=== PATIENT | male | born 1955 | race African-American/Black ===

== ENCOUNTER 2017-08-04 17:41 | Emergency (ER) | payer MEDICAID, OTHER ==
[~2017-08-04] VITALS: Ht 182.9 cm; Wt 98.0 kg
[2017-08-04 18:43] VITALS: BP 120/69
[2017-08-04] MEDS ORDERED: LIDOCAINE HCL/PF 1% 2 ML VIAL IM ONE (19:00)
[2017-08-04] MEDS ORDERED: IBUPROFEN 800 MG TABLET PO ONE (19:00)
[2017-08-04] MEDS ORDERED: CefTRIAXone SODIUM 1 GM/VIAL IM ONE (19:00)
== END 2017-08-04 20:36 | disposition home or self-care (01) ==
LOC: EMS 17:42
DX: L02.31 Cutaneous abscess of buttock (principal); H40.9 Unspecified glaucoma
CPT/HCPCS: 96372; 99283; J0696; J3490

== ENCOUNTER 2017-08-13 12:45 | Emergency (ER) | payer OTHER ==
[~2017-08-13] VITALS: Ht 177.8 cm; Wt 72.7 kg
[2017-08-13 12:59] VITALS: BP 137/95
[2017-08-13] MEDS ORDERED: ACET-66 PO (13:06)
[2017-08-13] MEDS ORDERED: BACTDSB PO (13:06)
[2017-08-13] MEDS ORDERED: CEPH500 PO (13:06)
[2017-08-13] MEDS ORDERED: OxyCODONE HCL/ACETAMINOPHEN 5-325 MG TABLET PO ONE (15:15)
== END 2017-08-13 16:16 | disposition home or self-care (01) ==
LOC: EMS 12:46
DX: K61.0 Anal abscess (principal); H40.9 Unspecified glaucoma
CPT/HCPCS: 99283

== ENCOUNTER 2019-11-24 12:13 | Emergency (ER) | payer MEDICAID, OTHER ==
[~2019-11-24] VITALS: Ht 170.2 cm; Wt 86.4 kg
[~2019-11-24 12:13] MED LIST: ACET-66 PO; BACTDSB PO; CEPH500 PO
[2019-11-24 13:14] VITALS: BP 142/79
== END 2019-11-24 13:21 | disposition home or self-care (01) ==
LOC: EMS 12:15
DX: Z02.6 Encounter for examination for insurance purposes (principal); H40.9 Unspecified glaucoma; Z79.899 Other long term (current) drug therapy

== ENCOUNTER 2021-09-19 09:23 | Emergency (ER) | payer MEDICAID ==
[~2021-09-19] VITALS: Ht 170.2 cm; Wt 68.2 kg
[~2021-09-19 09:23] MED LIST changes: -CEPH500 PO; +CEPH500C3 PO
[2021-09-19] MEDS ORDERED: MECLIZINE HCL 25 MG TABLET PO ONE (12:00)
[2021-09-19 14:03] VITALS: BP 131/75
== END 2021-09-19 14:05 | disposition home or self-care (01) ==
LOC: EMS 09:23
DX: H81.399 Other peripheral vertigo, unspecified ear (principal)
CPT/HCPCS: 70450; 93005; 99284

== ENCOUNTER 2023-02-18 17:35 | Emergency (ER) | payer MEDICARE, MEDICAID ==
[~2023-02-18] VITALS: Ht 167.6 cm; Wt 75.0 kg
[~2023-02-18 17:35] MED LIST changes: +CEPH-558 PO; -CEPH500C3 PO
[2023-02-18 17:41] VITALS: BP 146/91
[2023-02-18 18:14] LABS: EOSINOPHILS % (AUTO) 4.1 % (1.0-6.0); HEMOGLOBIN 13.8 g/dL (13.5-17.5); LYMPHOCYTES # (AUTO) 2.3 K/uL (1.0-4.8); LYMPHOCYTES % (AUTO) 38.8 % (22.0-44.0); MEAN CORPUSCULAR HEMOGLOBIN 29.2 pg (26.0-34.0); MEAN CORPUSCULAR HGB CONC 33.6 G/dL (31.0-37.0); MEAN CORPUSCULAR VOLUME 87 fL (80-100); MONOCYTES # (AUTO) 0.5 K/uL (0.1-1.0); MONOCYTES % (AUTO) 8.1 % (2.0-9.0); NEUTROPHILS # (AUTO) 2.8 K/uL (1.8-7.7); PLATELET COUNT (AUTO) 222 K/uL (150-450); RED BLOOD CELL COUNT(AUTO) 4.71 MIL/uL (4.50-5.90); RED CELL DISTRIBUTION WIDTH 13.3 % (11.5-14.5)
[2023-02-18 18:28] LABS: ANION GAP 5 mmol/L (8-16); CALCIUM, TOTAL 9.2 mg/dL (8.8-10.5); CARBON DIOXIDE 28 mmol/L (22-29); CHLORIDE 105 mmol/L (98-107); CREATININE 0.81 mg/dL (0.60-1.30); GLOMERULAR FILTR. RATE CALC > 60 mL/min (>60); GLUCOSE,RANDOM 113 mg/dL (70-110); POTASSIUM 4.5 mmol/L (3.5-5.1); SODIUM SERUM 138 mmol/L (136-145); UREA NITROGEN, BLOOD 11 mg/dL (7-18)
[2023-02-18 18:39] LABS: ALANINE AMINOTRANSFERASE 38 U/L (12-78); ALBUMIN 4.1 g/dL (3.4-5.0); ALKALINE PHOSPHATASE 88 U/L (46-116); ASPARTATE AMINOTRANSFERASE 23 U/L (15-37); LIPASE 99 U/L (73-393); TOTAL PROTEIN, SERUM 8.2 g/dL (6.4-8.2)
[2023-02-18] MEDS ORDERED: MAGNESIUM HYDROXIDE SUSPENSION 30 ML UDCUP PO ONE (21:15)
[2023-02-18] MEDS ORDERED: BISACODYL 10 MG RECTAL RECTAL SUPPOSITORY PR ONE (21:15)
[2023-02-18] MEDS ORDERED: POLY238P PO (22:30)
[2023-02-18] MEDS ORDERED: MAG30ORA11 PO (22:30)
[2023-02-18] MEDS ORDERED: OMEP20 PO (22:30)
== END 2023-02-18 22:43 | disposition home or self-care (01) ==
LOC: EMS 17:35
DX: K29.70 Gastritis, unspecified, without bleeding (principal); R10.13 Epigastric pain; K40.90 Unilateral inguinal hernia, without obstruction or gangrene, not specified as recurrent; Z98.890 Other specified postprocedural states
CPT/HCPCS: 99285; 74176; 71045; 80053; 83690; 84484; 85025; 36415; 93005; G0480

== ENCOUNTER 2023-10-20 16:17 | Emergency (ER) | payer OTHER ==
[~2023-10-20] VITALS: Ht 172.7 cm; Wt 68.2 kg
[~2023-10-20 16:17] MED LIST changes: -BACTDSB PO; -CEPH-558 PO; +MAG30ORA11 PO; +OMEP20 PO; +POLY238P PO
[2023-10-20 16:57] VITALS: BP 131/68; PULSE 68; RESP 18; TEMP 97.2
[2023-10-20] MEDS ORDERED: RABIES IMMUNE GLOBULIN/PF 150 UNIT/ML 10 ML VIAL IM. ONE (18:00)
[2023-10-20] MEDS ORDERED: PERTUSS(ACELL),DIPH,TET VAC/PF 0.5 ML SYRINGE IM. ONE (18:00)
[2023-10-20] MEDS ORDERED: AMOX TR/POT CLAV 875 MG/125 MG TABLET PO ONE (18:00)
[2023-10-20] MEDS ORDERED: RABIES VACCINE, HUMAN DIPLOID/PF 2.5 UNITS/ML VIAL IM. ONE (18:00)
[2023-10-20] MEDS ORDERED: AMOX1TAB16 PO (18:02)
[2023-10-20] MEDS ORDERED: BRIM15DR2 OU (18:05)
[2023-10-20] MEDS ORDERED: FLUT16SP NASAL (18:05)
[2023-10-20] MEDS ORDERED: LORA10TA7 PO (18:05)
[2023-10-20] MEDS ORDERED: BIMA2.5D4 OU (18:05)
== END 2023-10-20 19:12 | disposition home or self-care (01) ==
LOC: EMS 16:18
DX: S81.852A Open bite, left lower leg, initial encounter (principal); Z23 Encounter for immunization; W54.0XXA Bitten by dog, initial encounter; Y93.89 Activity, other specified; Y92.89 Other specified places as the place of occurrence of the external cause; Y99.8 Other external cause status
CPT/HCPCS: 90375; 90471; 90472; 90675; 90715; 96372; 99284

== ENCOUNTER 2023-10-25 16:16 | Emergency (ER) | payer OTHER ==
[~2023-10-25] VITALS: Ht 180.3 cm; Wt 93.0 kg
[~2023-10-25 16:16] MED LIST changes: +AMOX1TAB16 PO; +BIMA2.5D4 OU; +BRIM15DR2 OU; +FLUT16SP NASAL; +LORA10TA7 PO; -MAG30ORA11 PO; -OMEP20 PO; -POLY238P PO
[2023-10-25 16:20] VITALS: BP 120/64; PULSE 62; RESP 16; TEMP 98.3
[2023-10-25] MEDS ORDERED: RABIES VACCINE, HUMAN DIPLOID/PF 2.5 UNITS/ML VIAL IM. ONE (17:30)
== END 2023-10-25 18:05 | disposition home or self-care (01) ==
LOC: EMS 16:20
DX: S81.052D Open bite, left knee, subsequent encounter (principal); Z29.14 Encounter for prophylactic rabies immune globulin; Z98.890 Other specified postprocedural states; W54.0XXD Bitten by dog, subsequent encounter
CPT/HCPCS: 90471; 90675; 99281

== ENCOUNTER 2023-10-31 16:35 | Emergency (ER) | payer OTHER ==
[~2023-10-31] VITALS: Ht 175.3 cm; Wt 90.9 kg
[~2023-10-31 16:35] MED LIST changes: -ACET-66 PO
[2023-10-31 16:42] VITALS: TEMP 98
[2023-10-31 17:57] VITALS: BP 118/72; PULSE 72; RESP 18
[2023-10-31] MEDS ORDERED: RABIES VACCINE, HUMAN DIPLOID/PF 2.5 UNITS/ML VIAL IM. ONE (18:00)
== END 2023-10-31 18:34 | disposition home or self-care (01) ==
LOC: EMS 16:39
DX: S81.859D Open bite, unspecified lower leg, subsequent encounter (principal); Z23 Encounter for immunization; Z98.890 Other specified postprocedural states; W54.0XXD Bitten by dog, subsequent encounter
CPT/HCPCS: 90471; 90675; 99281

== ENCOUNTER 2024-05-18 16:35 | Emergency (ER) | payer OTHER ==
[~2024-05-18] VITALS: Ht 180.3 cm; Wt 119.0 kg
[~2024-05-18 16:35] MED LIST changes: -AMOX1TAB16 PO
[2024-05-18 21:28] VITALS: BP 145/88; PULSE 55; RESP 16; TEMP 98
[2024-05-18] MEDS: TraMADol HCL 50 MG TABLET PO ONE (21:56)
[2024-05-18] MEDS: KETOROLAC TROMETHAMINE 30 MG/ML VIAL IM ONE (21:56)
== END 2024-05-18 22:16 | disposition home or self-care (01) ==
LOC: EMS 16:35
DX: M75.32 Calcific tendinitis of left shoulder (principal); M77.31 Calcaneal spur, right foot; M77.32 Calcaneal spur, left foot; Z79.899 Other long term (current) drug therapy
CPT/HCPCS: 99283; 96372; J1885